=== PATIENT | female | born 1995 | race African-American/Black ===

== ENCOUNTER 2018-09-03 19:16 | Emergency (ER) | payer MEDICAID ==
[~2018-09-03] VITALS: Ht 167.6 cm; Wt 113.4 kg
[2018-09-03 19:26] VITALS: BP 109/62
--- NOTE | 2018-09-03 19:28 | NUR ---
TO LOBBY A/W BED AMBULATORY
--- NOTE | 2018-09-03 21:17 | NUR ---
PATIENT LEFT WITHOUT BEING SEEN BY DR. GORE. NO FURTHER CARE PROVIDED FOR PATIENT.
== END 2018-09-03 21:17 | disposition left against medical advice (07) ==
LOC: MED 19:16
DX: M79.662 Pain in left lower leg (principal); Z53.21 Procedure and treatment not carried out due to patient leaving prior to being seen by health care provider